=== PATIENT | female | born 2000 | race Two or more races ===

== ENCOUNTER 2022-11-06 18:37 | Emergency (ER) | payer OTHER ==
[~2022-11-06] VITALS: Ht 170.2 cm; Wt 72.6 kg
[2022-11-06] MEDS ORDERED: AZITHROMYCIN250 MG PO (19:23)
[2022-11-06] MEDS ORDERED: ORAPRED ODT30 MG PO (19:23)
[2022-11-06] MEDS ORDERED: OSEL75CA PO (19:23)
== END 2022-11-06 20:06 | disposition home or self-care (01) ==
LOC: EMR PED 18:37
DX: J02.8 Acute pharyngitis due to other specified organisms (principal); B97.89 Other viral agents as the cause of diseases classified elsewhere; R53.81 Other malaise

== ENCOUNTER 2024-01-04 12:29 | Emergency (ER) | payer OTHER ==
[~2024-01-04] VITALS: Ht 170.2 cm; Wt 81.6 kg
[~2024-01-04 12:29] MED LIST: AZITHROMYCIN250 MG PO; ORAPRED ODT30 MG PO; OSEL75CA PO
[2024-01-04] MEDS ORDERED: METHYLPREDNISOLONE SOD SUCC 40 MG VIAL IM ONE (14:15)
[2024-01-04] MEDS ORDERED: BENZONATATE 100 MG CAPSULE PO ONE (14:15)
[2024-01-04] MEDS ORDERED: LEVALBUTEROL HCL 0.63 MG/3 ML SOLUTION IH ONE (14:15)
[2024-01-04 16:32] LABS: HEMATOCRIT 38.8 % (36.0-45.00); HEMOGLOBIN 13.6 g/dL (12.0-15.00); MEAN CELL VOLUME 89.4 fL (80.00-100.00); MEAN CORPUSCULAR HEMOGLOBIN 31.3 pg (27.00-32.0); MEAN CORPUSCULAR HGB CONC 35.1 g/dl (32.0-36.0); PLATELET COUNT 330 K/uL (150-450); RED BLOOD COUNT 4.34 M/uL (4.00-6.00); RED CELL DISTRIBUTION WIDTH 13.3 % (11.5-14.5)
[2024-01-04] MEDS ORDERED: METHYLPREDNISOLONE SOD SUCC 125 MG VIAL IM STA (19:07)
[2024-01-04] MEDS ORDERED: CEFTRIAXONE SODIUM 1,000 MG VIAL IM STA (19:09)
== END 2024-01-04 19:22 | disposition home or self-care (01) ==
LOC: ER 12:30
PROVIDERS: General Practice
DX: R05.9 Cough, unspecified (principal); Z20.822 Contact with and (suspected) exposure to COVID-19